=== PATIENT | female | born 2000 | race Caucasian/White ===

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

== ENCOUNTER 2023-01-19 16:18 | Inpatient (IN) | payer OTHER, SELFPAY ==
[2023-01-19] VITALS (7 sets, daily range): BP systolic 112–126; BP diastolic 67–88; PULSE 69–86; RESP 16–18; TEMP 36.3–37.4; O2SAT 98–100; BMI 24.9; BMI 25.1
--- NOTE | 2023-01-19 16:34 | CT_ITS ---
INDICATION: RLQ abd pain EXAMINATION: CT Abdomen And Pelvis W/ Contrast Injection TECHNIQUE: Helically acquired images were obtained of the abdomen and pelvis after IV contrast. A radiation dose optimization technique was used for this scan. IV Contrast dosage and agent: IV 100mL [id number]-370 Oral contrast: None. COMPARISON: None. FINDINGS: Visualized lung bases: Unremarkable Liver: Unremarkable Gallbladder: Unremarkable Spleen: Unremarkable Pancreas: Unremarkable Adrenal Glands: Unremarkable Kidneys: Unremarkable Vasculature: Unremarkable GI Tract: There is a twisting of the mesentery and the mid sigmoid colon in the left lower abdominal quadrant. The small and large bowel proximal to this is dilated. There is surrounding mesenteric fat stranding. The appendix is not visualized. Lymphadenopathy: None Peritoneum: No ascites. Bladder: Unremarkable Reproductive organs: Unremarkable Bones/Soft tissues: No suspicious osseous or soft tissue lesions CT/Abdomen/Pelvis W IV Cont ONLY IMPRESSION: Sigmoid volvulus. Electronically Signed: River Jensen MD at 17:42 EDT ,
[2023-01-19 16:42] LABS: Absolute Lymphocyte Count 2.25 X10^3/uL (0.83-4.51); Absolute Neutrophil Count 3.8 X10^3/uL (2.0-7.7); Basophil# 0.04 X10^3/uL; Basophil% 0.6 % (0-1); Eosinophil# 0.08 X10^3/uL; Eosinophils% 1.2 % (0-5); Hematocrit 40.7 % (37-47); Lymphocyte # 2.25 X10^3/ul (0.83-4.51); Mean Corp Hgb Conc 34.4 g/dL (32-36); Mean Corpuscular Hgb 29.9 pg (27.0-32.0); Mean Platelet Vol. 9.6 fl (6.2-12.0); Monocyte# 0.68 X10^3/uL; NRBC Flagged by Analyzer 0 % (0-5); Neutrophil # 3.75 X10^3/uL (2.7-7.7); Neutrophil % 55.1 % (47-70); Platelet Count 308 K/mm3 (150-450); RBC Distribution Width CV 11.3 % (11.6-14.6); RBC Distribution Width SD 35.7 fl (35.1-43.9); Red Blood Count 4.68 M/mm3 (4.2-5.4); White Blood Count 6.8 K/mm3 (4.4-11.0)
--- NOTE | 2023-01-19 16:44 | ED.VIS.GI ---
HPI HPI - GI History of Present Illness Chief Complaint: Abd Pain Informant: patient Narrative Narrative: Patient is a 22-year-old female with no significant past medical history presenting with abdominal pain. Patient states she felt fine yesterday. When she woke up today she had some pain in her lower abdomen and around her bellybutton. As a day progresses move more to her right lower quadrant. Its become more severe. She had she is on her menstrual cycle but this does not feel like menstrual cramps. She has had a decreased appetite today but still was able to eat lunch around 1:00. Denies any significant nausea vomiting or change or bowel movements. Denies any fever or chills. Denies a history of any abdominal surgeries. Never anything like this before. Notes that any bumps in the road when driving make the pain worse. Did try to take Midol little after 1 with no relief of her symptoms. No other complaints or concerns at this time. Denies any urinary symptoms. PFSH PFSH Home Medications multivitamin (Daily Multi-Vitamin tablet) 1 tab PO QAM 06/11/17 [History Last Taken Unknown] azithromycin 250 mg tablet See Rx Instructions PO .COMPLEX #6 tabs 08/26/18 [Rx Last Taken Unknown] Allergy/AdvReac Type Severity Reaction Status Date / Time No Known Allergies Allergy Verified 01/19/23 16:21 Social History Smoking Status: Never smoker alcohol intake: never ROS ROS ED Constitutional Constitutional ED: Denies chills or fever(s) Cardiovascular Cardiovascular: Denies chest pain Respiratory/Chest Respiratory/Chest: Denies cough Gastrointestinal Gastrointestinal: Reports abdominal pain; Denies constipation, diarrhea, nausea or vomiting Genitourinary Genitourinary ED: Denies dysuria or hematuria Musculoskeletal Musculoskeletal: Denies arthralgias or myalgias Integumentary Denies rash Neurologic Neurologic: Denies headache(s) Psychiatric Psychiatric: Denies anxiety EXAM Physical Exam Const Vital Signs: 01/19/23 16:19 Temperature 97.5 F L Temperature Source Temporal Pulse Rate 86 Respiratory Rate 18 Blood Pressure 125/88 H Blood Pressure Mean 100 Pulse Ox 98 Oxygen Delivery Method Room Air Positive well nourished and well developed General Appearance ED: well developed and NAD; Negative for pallor HEENT Reports moist mucous membranes Eyes PERRL and EOMs intact bilaterally Neck supple Resp normal respiratory effort and clear to auscultation bilaterally Cardio regular rate, regular rhythm and no murmurs GI Inspection: abdominal distention Auscultation: hypoactive bowel sounds Palpation: soft, tender RLQ, guarding and rebound tenderness present; Negative for rigid or mass Back/Spine no CVA tenderness Extremity full ROM Neuro moves all extremities Sensorium / Orientation: alert, oriented to person, oriented to place and oriented to time Psych mental status grossly normal and thought process normal Skin General Skin Exam: Negative for jaundice or pallor MDM MDM MDM Narrative Medical decision making narrative: Patient is evaluated for worsening right lower quadrant abdominal pain. She appears nontoxic. Does have a lot of pain in her right lower quadrant. Is given Toradol for pain (offered morphine but declined it at this time). Is given IV fluids as well. Physical exam is concerning for acute appendicitis and I did make surgery aware as is getting towards the end of the business day. Differential also includes ovarian torsion, colitis and small bowel obstruction but I feel like these are less likely. Patient's lab work is largely normal. Urine is negative. CT of the abdomen pelvis actually shows a sigmoid volvulus. Surgery spoke with radiology about this. Patient started on Zosyn. She will be taken for operative management. Tentative plan is to attempt sigmoid decompression/detorsion and then laparoscopic repair at a later date however this is unsuccessful patient will require an open laparotomy for sigmoidectomy. Patient continues to have adequate pain control in the ER. Patient and family agreeable with this plan of care. Lab Data Attestation: I reviewed the patient's lab results. Labs: Laboratory Results - last 24 hr 01/19/23 01/19/23 16:37 16:45 WBC 6.8 RBC 4.68 Hgb 14.0 Hct 40.7 MCV 87.0 MCH 29.9 MCHC 34.4 RDW Std Deviation 35.7 RDW Coeff of Leo 11.3 L Plt Count 308 MPV 9.6 Immature Gran % (Auto) 0.100 Neut % (Auto) 55.1 Lymph % (Auto) 33.0 [place] % (Auto) 10.0 Eos % (Auto) 1.2 Baso % (Auto) 0.6 Absolute Neuts (auto) 3.8 Absolute Lymphs (auto) 2.25 Nucleated RBC % 0 Sodium 139 Potassium 3.6 Chloride 110 H Carbon Dioxide 24.0 Anion Gap 5 BUN 7 Creatinine 0.70 Estim Creat Clear Calc 124.67 Est GFR (MDRD) Af Amer 136 Est GFR (MDRD) Non-Af 112 BUN/Creatinine Ratio 9.9 L Glucose 97 Calcium 8.8 Total Bilirubin 0.40 AST 14 L ALT 17 Alkaline Phosphatase 41 L Total Protein 7.2 Albumin 3.5 Globulin 3.7 Albumin/Globulin Ratio 0.9 Lipase 29 Urine Color Straw Urine Clarity Sl. Cloudy Urine pH 7.0 Ur Specific [place] 1.005 Urine Protein Negative Urine Glucose (UA) Normal Urine Ketones Negative Urine Occult Blood Negative Urine Nitrite Negative Urine Bilirubin Negative Urine Urobilinogen Normal Ur Leukocyte Esterase Negative Urine RBC 0 SEEN Urine WBC 0 SEEN Ur Squamous Epith Cells 0-5 SEEN Urine Bacteria 0 SEEN Urine Mucus 0 SEEN Urine Test Negative Radiography Diagnostic Testing: Clinical Impression(s) from Imaging Studies Abdomen/Pelvis CT 01/19/23 16:34 IMPRESSION: Sigmoid volvulus. Electronically Signed: River Jensen MD at 17:42 EDT , Discharge Plan Dx/Rx/DC Orders Clinical Impression: Volvulus of sigmoid colon Disposition Disposition: Acute Care Hospital [facility] [place] Discharge Date/Time: 01/19/23 18:23
[2023-01-19 16:52] LABS: Bacteria 0 SEEN /hpf (None Seen); Mucous, Urine 0 SEEN /hpf (<or=2+); Red Blood Cells-Urine 0 SEEN /hpf (0-5); White Blood Cells 0 SEEN /hpf (0-5)
[2023-01-19] MEDS: 0.9% Normal Saline (1000mL) 1,000 ML 1000 ML IV (16:53)
[2023-01-19] MEDS: Ketorolac 15 MG/ML Vial IV (16:54)
[2023-01-19 16:57] LABS: Color, Urine Straw (Yellow); Glucose, Dipstick Normal (Normal); Ketone-Dipstick Negative (Negative); Leukocyte Esterase-Dipstick Negative /ul (Negative); Nitrite-Dipstick Negative (Negative); Occult Blood-Urine Negative /ul (Negative); Protein-Dipstick Negative (Negative); Specific Gravity, Urine 1.005 (1.002-1.030); Urine Bilirubin Dipstick Negative (Negative); Urine Clarity Sl. Cloudy (Clear); Urine Urobilinogen Normal (Normal)
[2023-01-19 16:59] LABS: Internal QC Validated? YES +Cl - CLEAR BKGD; Pregnancy, Urine Negative Negative; Record Kit Lot#,Urine Preg HCG0000667200
[2023-01-19 17:03] LABS: ALB/GLOB Ratio 0.9 RATIO (0.9-2.4); AST(SGOT) 14 U/L (15-37); Alanine Aminotransfer ALT/SGPT 17 U/L (13-56); Albumin, Serum 3.5 g/dL (3.2-5.0); Alkaline Phosphatase 41 U/L (45-117); Anion Gap 5 (5-15); BUN 7 mg/dL (7-18); BUN/Creat Ratio 9.9 RATIO (10-20); Calcium,Total 8.8 mg/dL (8.5-10.1); Chloride 110 mmol/L (98-107); EST Glomerular Filtration Rate 112 mL/min (>60); Est Glom Filt Rate - Afr Amer 136 mL/min (>60); Estimated Creatinine Clearance 124.67 ml/min; Globulin 3.7 g/dL (2.2-4.2); Glucose 97 mg/dL (74-106); Lipase 29 U/L (13-75); Potassium 3.6 mmol/L (3.5-5.1); Protein, Total 7.2 g/dL (6.4-8.2); Sodium Level 139 mmol/L (136-145)
[2023-01-19 17:09] LABS: Squamous Epithelial Cells - UA 0-5 SEEN /hpf (5-10)
--- NOTE | 2023-01-19 18:06 | HP.PCM.SX_ITS ---
HPI - General General Date of Admission: 01/19/23 HPI Narrative NEELAM MIKE, is a 22 F who presents with abdominal pain in the right lower quadrant. She says this pain started today. She says she has passed gas and had a bowel movement today. She says this does not feel like her normal menstrual pain. She denies nausea or vomiting. [facility] Home Medications multivitamin (Daily Multi-Vitamin tablet) 1 tab PO QAM 06/11/17 [History Last Taken Unknown] azithromycin 250 mg tablet See Rx Instructions PO .COMPLEX #6 tabs 08/26/18 [Rx Last Taken Unknown] Allergy/AdvReac Type Severity Reaction Status Date / Time No Known Allergies Allergy Verified 01/19/23 16:21 Social History Smoking Status: Never smoker alcohol intake: never ROS Constitutional Constitutional: Denies anorexia, chills, fatigue or fever(s) Eyes Eyes: Denies blurry vision ENT HEENT: Denies abnormal hearing Cardiovascular Cardiovascular: Denies chest pain Respiratory/Chest Respiratory/Chest: Denies cough or dyspnea Gastrointestinal Gastrointestinal: Reports abdominal pain; Denies constipation, diarrhea, nausea or vomiting Genitourinary Genitourinary: Denies difficulty urinating Musculoskeletal Musculoskeletal: Denies abnormal gait Integumentary Integumentary: Denies jaundice Neurologic Neurologic: Denies abnormal gait Psychiatric Psychiatric: Denies anxiety Endocrine Endocrinology: Denies flushing Vital Signs Vital Signs Vital Signs: 01/19/23 16:19 01/19/23 17:40 Temperature 97.5 F L 97.4 F L Temperature Source Temporal Temporal Pulse Rate 86 74 Respiratory Rate 18 16 Blood Pressure 125/88 H 126/84 H Blood Pressure Mean 100 98 Pulse Ox 98 99 Oxygen Delivery Method Room Air Room Air Weight Weight: 159 lb Body Mass Index (BMI) 24.9 Physical Exam Const oriented x3 and no apparent distress Resp normal respiratory effort Cardio regular rate and regular rhythm GI soft to palpation and non-tender Inspection: abdominal distention Results Lab / Micro Data 01/19/23 16:37 01/19/23 16:37 Labs: Laboratory Results - last 24 hr 01/19/23 16:37: WBC 6.8, RBC 4.68, Hgb 14.0, Hct 40.7, MCV 87.0, MCH 29.9, MCHC 34.4, RDW Std Deviation 35.7, RDW Coeff of Leo 11.3 L, Plt Count 308, MPV 9.6, Immature Gran % (Auto) 0.100, Neut % (Auto) 55.1, Lymph % (Auto) 33.0, Gray % (A uto) 10.0, Eos % (Auto) 1.2, Baso % (Auto) 0.6, Absolute Neuts (auto) 3.8, Absolute Lymphs (auto) 2.25, Nucleated RBC % 0, Sodium 139, Potassium 3.6, Chloride 110 H, Carbon Dioxide 24.0, Anion Gap 5, BUN 7, Creatinine 0.70, Estim Creat Clear Calc 124.67, Est GFR (MDRD) Af Amer 136, Est GFR (MDRD) Non-Af 112, BUN/Creatinine Ratio 9.9 L, Glucose 97, Calcium 8.8, Total Bilirubin 0.40, AST 14 L, ALT 17, Alkaline Phosphatase 41 L, Total Protein 7.2, Albumin 3.5, Globulin 3.7, Albumin/Globulin Ratio 0.9, Lipase 29 01/19/23 16:45: Urine Color Straw, Urine Clarity Sl. Cloudy, Urine pH 7.0, Ur Specific [place] 1.005, Urine Protein Negative, Urine Glucose (UA) Normal, Urine Ketones Negative, Urine Occult Blood Negative, Urine Nitrite Negative, Urine Bilirubin Negative, Urine Urobilinogen Normal, Ur Leukocyte Esterase Negative, Urine RBC 0 SEEN, Urine WBC 0 SEEN, Ur Squamous Epith Cells 0-5 SEEN, Urine Bacteria 0 SEEN, Urine Mucus 0 SEEN, Urine Test Negative Radiology Impression Abdomen/Pelvis CT 01/19/23 16:34 IMPRESSION: Sigmoid volvulus. Electronically Signed: River Jensen MD at 17:42 EDT , Assessment & Plan Assessment/Plan (1) Volvulus of sigmoid colon: PLAN: Patient came in with abdominal pain a CT revealed sigmoid volvulus. The patient is nontender and all of her pain is in the right lower quadrant. She does not have any guarding or fever. I discussed her diagnosis with her. I would like to attempt flexible sigmoidoscopy first. There are no signs of peritonitis or ischemia. Her white count is normal. If decompressive sigmoidoscopy is not able to be done then I will take her for exploratory laparotomy and sigmoid resection. If I am able to decompress her with sigmoidoscopy I will admit her to the floor and slowly start a diet and decide when to operate on her this week after bowel prep and I would be able to perform an invasive surgery. I discussed this plan with the patient and her father and they are both in agreement. I discussed the risks of surgery and flexible sigmoidoscopy including but not limited to bleeding, infection, perforation of the bowel, injury to other organs. Patient understands the risks and is willing to proceed. The plan will be to take her under MAC anesthesia for flexible sigmoidoscopy and if that is unsuccessful she will go to PACU to recover and then go to surgery under general anesthesia. Patient is given antibiotics in the emergency room. Vipul Bauer MD Pager: [facility] [address] [place] [address] [address] [place] [address] Office:
[2023-01-19] MEDS: Piperacil/Tazobactam 3.375 GM in 0.9% Normal Saline (50mL MB+) 50 ML IV (18:11)
--- NOTE | 2023-01-19 19:13 | OP.FLEXSIG_ITS ---
Patient Name: Zunilda Butts Procedure Date: 01/19/2023 6:06 PM Date of : 2000 Age: 22 Procedure: Flexible Sigmoidoscopy Indications: Volvulus Providers: Vipul Bauer MD Medicines: Monitored Anesthesia Care Patient Profile: Last Colonoscopy: none. The patient's first colonoscopy is today. Complications: No immediate complications. Estimated blood loss: Minimal. Procedure: Pre-Anesthesia Assessment: - Prior to the procedure, a History and Physical was performed, and patient medications and allergies were reviewed. The patient's tolerance of previous anesthesia was also reviewed. The risks and benefits of the procedure and the sedation options and risks were discussed with the patient. All questions were answered, and informed consent was obtained. Prior Anticoagulants: The patient has taken no anticoagulant or antiplatelet agents. After reviewing the risks and benefits, the patient was deemed in satisfactory condition to undergo the procedure. After obtaining informed consent, the endoscope was passed under direct vision. Throughout the procedure, the patient's blood pressure, pulse, and oxygen saturations were monitored continuously. The Colonoscope was introduced through the anus and advanced to the left transverse colon. The flexible sigmoidoscopy was accomplished without difficulty. The patient tolerated the procedure well. Scope In: 6:35:58 PM Scope Out: 7:06:05 PM Total Procedure Duration Time 0 hours 30 minutes 7 seconds Findings: A volvulus with viable appearing mucosa was found in the sigmoid colon. Decompression of the volvulus was attempted and was successful, with complete decompression achieved. Following the maneuver, a tube was placed to maintain the decompression. Estimated blood loss was minimal. Impression: - Volvulus. Successful complete decompression achieved. - No specimens collected. Recommendation: - Return patient to hospital cool for ongoing care. Procedure Code(s): --- Professional --- 05839, Sigmoidoscopy, flexible; with decompression (for pathologic distention) (eg, volvulus, megacolon), including placement of decompression tube, when performed Diagnosis Code(s): --- Professional --- K56.2, Volvulus CPT copyright 2021 [employer]. All rights reserved. The codes documented in this report are preliminary and upon supervisor braiding review may be revised to meet current compliance requirements. Vipul Bauer MD 01/19/2023 7:12:36 PM This report has been signed electronically. Number of Addenda: 0 Note Initiated On: 01/19/2023 6:06 PM
--- NOTE | 2023-01-19 19:13 | OP.CCLET_ITS ---
01/19/2023 Christopher Anthony [address] [place] [address] Re : Flexible Sigmoidoscopy procedure for Zunilda Butts Dear Dr. Anthony This procedure was performed on Thursday, January 19, 2023. My impressions and recommendations are as follows: Impressions : - Volvulus. Successful complete decompression achieved. - No specimens collected. Recommendations : - Return patient to hospital cool for ongoing care. My findings are described in the full procedure note, which is enclosed. If I can be of further assistance, please feel free to contact me at Doctor phone number(s): , Work: . Sincerely, Vipul Bauer MD 01/19/2023 7:12:36 PM This report has been signed electronically.
--- NOTE | 2023-01-19 19:15 | PN_ITS ---
Progress Note I performed a flexible sigmoidoscopy and I was able to decompress the sigmoid colon and placed a rectal tube. The mucosa appeared viable and healthy. Rectal tube was placed and taped to the buttock. KUB will be obtained. Patient will be admitted and rectal tube would stay in place until tomorrow. Vipul Bauer MD Pager: [facility] [address] [place] [address] [address] [place] [address] Office:
--- NOTE | 2023-01-19 19:20 | RAD_ITS ---
INDICATION: placement of rectal tube EXAMINATION/TECHNIQUE: X-RAY - XR Abdomen 1 View COMPARISON: None FINDINGS: BOWEL GAS PATTERN: Interval decrease in air-filled distention of small and large bowel. Status post rectal tube placement. FREE AIR: Not assessed on a single supine view. ORGANOMEGALY: Not seen. CALCIFICATIONS: No abnormal calcifications observed. LOWER CHEST: No acute pathology. BONES AND SOFT TISSUES: No acute pathology. RAD/Abdomen Single View (Portable) IMPRESSION: Interval rectal tube placement with associated improvement in bowel obstruction from known sigmoid volvulus. Electronically Signed: River Jensen MD at 20:06 EDT ,
[2023-01-19] MEDS: 0.9% Normal Saline (1000mL) 1,000 ML 100 ML IV (20:11)
[2023-01-20 02:35] VITALS: BP 113/57; PULSE 66; RESP 16; TEMP 36.6; O2SAT 98
[2023-01-20 05:47] LABS: Absolute Lymphocyte Count 2.48 X10^3/uL (0.83-4.51); Absolute Neutrophil Count 1.9 X10^3/uL (2.0-7.7); Basophil# 0.03 X10^3/uL; Basophil% 0.6 % (0-1); Eosinophil# 0.09 X10^3/uL; Eosinophils% 1.8 % (0-5); Hematocrit 34.3 % (37-47); Hemoglobin 11.4 g/dL (12.0-15.0); Lymphocyte # 2.48 X10^3/ul (0.83-4.51); Lymphocyte % 49.5 % (19-41); Mean Corp Hgb Conc 33.2 g/dL (32-36); Mean Corpuscular Hgb 29.2 pg (27.0-32.0); Mean Corpuscular Volume 87.9 fL (81-99); Mean Platelet Vol. 10.5 fl (6.2-12.0); Monocyte# 0.54 X10^3/uL; Monocyte% 10.8 % (0-10); NRBC Flagged by Analyzer 0 % (0-5); Neutrophil # 1.85 X10^3/uL (2.7-7.7); Neutrophil % 36.9 % (47-70); Platelet Count 252 K/mm3 (150-450); RBC Distribution Width CV 11.3 % (11.6-14.6); RBC Distribution Width SD 35.7 fl (35.1-43.9)
[2023-01-20] MEDS: 0.9% Normal Saline (1000mL) 1,000 ML 100 ML IV ×2 (05:53→15:59)
[2023-01-20 06:28] LABS: Anion Gap 4 (5-15); BUN 6 mg/dL (7-18); BUN/Creat Ratio 8.8 RATIO (10-20); Calcium,Total 7.7 mg/dL (8.5-10.1); Chloride 115 mmol/L (98-107); Creatinine, Serum 0.68 mg/dL (0.55-1.02); EST Glomerular Filtration Rate 117 mL/min (>60); Est Glom Filt Rate - Afr Amer 141 mL/min (>60); Estimated Creatinine Clearance 128.33 ml/min; Glucose 83 mg/dL (74-106); Potassium 3.7 mmol/L (3.5-5.1); Sodium Level 141 mmol/L (136-145)
[2023-01-20 08:31] VITALS: BP 107/60; PULSE 58; RESP 16; TEMP 36.9; O2SAT 99
--- NOTE | 2023-01-20 09:25 | PCM.PN.SRG ---
Subjective Subjective Patient is doing well with no pain Objective Data Objective Data Vital Signs: Vital Signs Temp Pulse Resp BP Pulse Ox O2 Del Method 98.4 F 58 L 16 107/60 99 Room Air 01/20/23 08:31 01/20/23 08:31 01/20/23 08:31 01/20/23 08:31 01/20/23 08:31 01/20/23 08:31 Oxygen Delivery Method Room Air Weight: 160 lb 4.8 oz Body Mass Index (BMI) 25.1 Intake & Output: Intake and Output for Last 24 Hours 01/18/23 01/19/23 01/20/23 23:59 23:59 23:59 Intake Total 1050 / 1050 970 / 970 Balance 1050 / 1050 970 / 970 Lab / Micro Data 01/20/23 04:34 01/20/23 04:34 Labs: Laboratory Results - last 24 hr 01/19/23 16:37: WBC 6.8, RBC 4.68, Hgb 14.0, Hct 40.7, MCV 87.0, MCH 29.9, MCHC 34.4, RDW Std Deviation 35.7, RDW Coeff of Leo 11.3 L, Plt Count 308, MPV 9.6, Immature Gran % (Auto) 0.100, Neut % (Auto) 55.1, Lymph % (Auto) 33.0, [place] % (Auto) 10.0, Eos % (Auto) 1.2, Baso % (Auto) 0.6, Absolute Neuts (auto) 3.8, Absolute Lymphs (auto) 2.25, Nucleated RBC % 0, Sodium 139, Potassium 3.6, Chloride 110 H, Carbon Dioxide 24.0, Anion Gap 5, BUN 7, Creatinine 0.70, Estim Creat Clear Calc 124.67, Est GFR (MDRD) Af Amer 136, Est GFR (MDRD) Non-Af 112, BUN/Creatinine Ratio 9.9 L, Glucose 97, Calcium 8.8, Total Bilirubin 0.40, AST 14 L, ALT 17, Alkaline Phosphatase 41 L, Total Protein 7.2, Albumin 3.5, Globulin 3.7, Albumin/Globulin Ratio 0.9, Lipase 29 01/19/23 16:45: Urine Color Straw, Urine Clarity Sl. Cloudy, Urine pH 7.0, Ur Specific [place] 1.005, Urine Protein Negative, Urine Glucose (UA) Normal, Urine Ketones Negative, Urine Occult Blood Negative, Urine Nitrite Negative, Urine Bilirubin Negative, Urine Urobilinogen Normal, Ur Leukocyte Esterase Negative, Urine RBC 0 SEEN, Urine WBC 0 SEEN, Ur Squamous Epith Cells 0-5 SEEN, Urine Bacteria 0 SEEN, Urine Mucus 0 SEEN, Urine Test Negative 01/20/23 04:34: WBC 5.0, RBC 3.90 L, Hgb 11.4 L, Hct 34.3 L, MCV 87.9, MCH 29.2, MCHC 33.2, RDW Std Deviation 35.7, RDW Coeff of Leo 11.3 L, Plt Count 252, MPV 10.5, Immature Gran % (Auto) 0.400, Neut % (Auto) 36.9 L, Lymph % (Auto) 49.5 H, [place] % (Auto) 10.8 H, Eos % (Auto) 1.8, Baso % (Auto) 0.6, Absolute Neuts (auto) 1.9 L, Absolute Lymphs (auto) 2.48, Nucleated RBC % 0, Sodium 141, Potassium 3.7, Chloride 115 H, Carbon Dioxide 22.0, Anion Gap 4 L, BUN 6 L, Creatinine 0.68, Estim Creat Clear Calc 128.33, Est GFR (MDRD) Af Amer 141, Est GFR (MDRD) Non-Af 117, BUN/Creatinine Ratio 8.8 L, Glucose 83, Calcium 7.7 L Radiography Diagnostic Testing: Radiology Impression Abdomen/Pelvis CT 01/19/23 16:34 IMPRESSION: Sigmoid volvulus. Electronically Signed: River Jensen MD at 17:42 EDT , KUB X-Ray 01/19/23 19:20 IMPRESSION: Interval rectal tube placement with associated improvement in bowel obstruction from known sigmoid volvulus. Electronically Signed: River Jensen MD at 20:06 EDT , Physical Exam Const oriented x3 and no apparent distress Resp normal respiratory effort GI soft to palpation and non-tender Assessment & Plan Assessment/Plan (1) Volvulus of sigmoid colon: PLAN: Patient reports she is feeling well. She says the rectal tube is uncomfortable. I will remove the rectal tube and start clear liquids today. I am waiting for tomorrow to see when I can schedule her for a sigmoid colectomy. If her symptoms worsen with removal of the rectal tube and starting of a diet I am may take her today for sigmoid colectomy but the hope would be that she tolerates clears and would be able to do a bowel prep and complete the sigmoid colectomy minimally invasively. Vipul Bauer MD Pager: [facility] [address] [place] [address], [address] [place] [address] Office:
--- NOTE | 2023-01-20 12:57 | NURSING ---
1100-rectal tube removed per orders of Dr. Bauer.
[2023-01-20 14:31] VITALS: BP 103/55; PULSE 61; RESP 16; TEMP 37; O2SAT 99
--- NOTE | 2023-01-20 17:18 | NURSING ---
VS taken by Maria L ARAUJO at 1431 and entered by Tiffany ARAUJO at 1711
[2023-01-20 21:21] VITALS: BP 113/62; PULSE 64; RESP 16; TEMP 36.6; O2SAT 100
[2023-01-21] MEDS: 0.9% Normal Saline (1000mL) 1,000 ML 100 ML IV ×3 (01:44→21:09)
[2023-01-21 02:12] VITALS: BP 105/63; PULSE 82; RESP 16; TEMP 36.6; O2SAT 99
--- NOTE | 2023-01-21 08:17 | PCM.PN.SRG ---
Subjective Subjective Patient reports she is passing some flatus this morning. She is having no abdominal pain. She tolerated clears yesterday. Objective Data Objective Data Vital Signs: Vital Signs Temp Pulse Resp BP Pulse Ox O2 Del Method 97.8 F 82 16 105/63 99 Room Air 01/21/23 02:12 01/21/23 02:12 01/21/23 02:12 01/21/23 02:12 01/21/23 02:12 01/21/23 02:12 Oxygen Delivery Method Room Air Weight: 160 lb 4.8 oz Body Mass Index (BMI) 25.1 Intake & Output: Intake and Output for Last 24 Hours 01/19/23 01/20/23 01/21/23 23:59 23:59 23:59 Intake Total 1050 / 1050 2270 / 2270 975 / 975 Balance 1050 / 1050 2270 / 2270 975 / 975 Lab / Micro Data 01/20/23 04:34 01/20/23 04:34 Physical Exam Const oriented x3 and no apparent distress Resp normal respiratory effort GI soft to palpation and non-tender Assessment & Plan Assessment/Plan (1) Volvulus of sigmoid colon: PLAN: The patient had sigmoid volvulus and underwent endoscopic decompression with placement of rectal tube. Rectal tube was removed yesterday due to discomfort. Patient states she is passing gas and tolerating clears. I have her on the surgery schedule for for laparoscopic sigmoid colectomy. I will see how she tolerates clears today before deciding if she will stay till or go home and come back. Vipul Bauer MD Pager: [facility] [address] [place] [address] [place] [address] Office:
[2023-01-21 08:18] VITALS: BP 104/58; PULSE 60; RESP 18; TEMP 36.3; O2SAT 99
--- NOTE | 2023-01-21 10:02 | NURSING ---
education/reinforcement of precautions/risks/ramifications with missing control/antibiotic meds for unwanted prevention. pt verbalizes understanding.
[2023-01-21 14:20] VITALS: BP 104/61; PULSE 60; RESP 18; TEMP 36.6; O2SAT 100
--- NOTE | 2023-01-21 14:55 | CASEMGMT ---
RN?CM?WHEEL BORER?CM?to room to meet with patient for initial transition planning/care coordination?assessment.?RN?CM?introduced self and role at [facility].? Pt voices understanding and consents to?assessment?at this time.? Pt resting in bed in no distress at this time.? Pt is A/O at this time and answers all questions appropriately.?? Care providers, pharmacy, and demographics verified/updated at this time. PCP: Dr Anthony Specialists: none Preferred Pharmacy: [facility] Retail pharmacy at discharge. Otherwise, [facility] Insurance: Commercial insurance Prescription Benefit:?yes Living Will/HPOA:?Pt does not currently have LW/HCPOA and declines info at this time. LNOK: Mother, Najma. Father. Living Arrangements: Lives w/her parents, brother, and sister, but she has been @ college. Independent. Transportation:?Pt states drives self and states no transportation concerns at this time.?Parents will take her home @ discharge. DME: ? Denies using any DME and denies needs.? HHC/SNF: No hx of either. Pt wishes to return home and states has no concerns with going home at time of discharge.? CM?to follow for any discharge planning/needs.? Pt voices no concerns/needs at this time.? Advised pt to ask for?CM?if any questions/concerns/needs arise.? Voices understanding. PLAN:??Home Karina ENCINASN?RN?CM
[2023-01-21 21:02] VITALS: BP 105/62; PULSE 52; RESP 16; TEMP 36.4; O2SAT 98
[2023-01-22 03:39] VITALS: BP 101/58; PULSE 94; RESP 18; TEMP 36.4; O2SAT 98
[2023-01-22] MEDS: 0.9% Normal Saline (1000mL) 1,000 ML 100 ML IV (06:29)
[2023-01-22 08:28] VITALS: BP 106/58; PULSE 67; RESP 16; TEMP 36.4; O2SAT 99
--- NOTE | 2023-01-22 09:07 | PN.SURG_ITS ---
Subjective Subjective No issues today. Patient is comfortable and passing flatus. She tolerated full liquids. She had a bowel movement yesterday. Objective Data Objective Data Vital Signs: Vital Signs Temp Pulse Resp BP Pulse Ox O2 Del Method 97.5 F L 67 16 106/58 L 99 Room Air 01/22/23 08:28 01/22/23 08:28 01/22/23 08:28 01/22/23 08:28 01/22/23 08:28 01/22/23 08:28 Oxygen Delivery Method Room Air Weight: 160 lb 4.8 oz Body Mass Index (BMI) 25.1 Intake & Output: Intake and Output for Last 24 Hours 01/20/23 01/21/23 01/22/23 23:59 23:59 23:59 Intake Total 2270 / 2270 2916.66 / 2916.66 1170.00 / 1170.00 Balance 2270 / 2270 2916.66 / 2916.66 1170.00 / 1170.00 Lab / Micro Data 01/20/23 04:34 01/20/23 04:34 Assessment & Plan Assessment/Plan (1) Volvulus of sigmoid colon: PLAN: Patient is tolerating full liquids. I will start a clear liquid diet and bowel prep tomorrow for surgery on . Vipul Bauer MD Pager: [facility] [address] [place] [address], [address] [place] [address] Office:
[2023-01-22] MEDS: FLUoxetine 10 MG Capsule PO (11:27)
[2023-01-22 15:06] VITALS: BP 105/64; PULSE 82; RESP 16; TEMP 36.6; O2SAT 99
[2023-01-22 21:06] VITALS: BP 128/107; PULSE 89; RESP 16; TEMP 36.4; O2SAT 98
[2023-01-23 03:12] VITALS: BP 103/61; PULSE 71; RESP 16; TEMP 36.6; O2SAT 99
[2023-01-23] MEDS: FLUoxetine 10 MG Capsule PO (10:03)
[2023-01-23 10:07] VITALS: BP 100/55; PULSE 70; RESP 17; TEMP 36.6; O2SAT 98
--- NOTE | 2023-01-23 10:37 | PN.SURG_ITS ---
Subjective Subjective Patient evaluated resting comfortably in bed. She denies any concerns or complaints this morning. She tolerated her full liquid diet. Objective Data Objective Data Vital Signs: Vital Signs Temp Pulse Resp BP Pulse Ox O2 Del Method 97.8 F 70 17 100/55 L 98 Room Air 01/23/23 10:07 01/23/23 10:07 01/23/23 10:07 01/23/23 10:07 01/23/23 10:07 01/23/23 10:07 Oxygen Delivery Method Room Air Weight: 160 lb 4.417 oz Body Mass Index (BMI) 25.1 Intake & Output: Intake and Output for Last 24 Hours 01/21/23 01/22/23 01/23/23 23:59 23:59 23:59 Intake Total 2916.66 / 2916.66 1670.00 / 1670.00 500 / 500 Balance 2916.66 / 2916.66 1670.00 / 1670.00 500 / 500 Lab / Micro Data 01/20/23 04:34 01/20/23 04:34 Physical Exam GI normal to inspection, nondistended, normoactive bowel sounds Assessment & Plan Assessment/Plan (1) Volvulus of sigmoid colon: PLAN: Plan Start clear liquids this morning Plan for ERAS bowel prep today Laparoscopic sigmoid colectomy planned for tomorrow with Dr. Bauer Charges/Coding Visit Charges Inpatient E&M: 05053 [facility] L1
[2023-01-23] MEDS: Bisacodyl 5 MG Tablet PO ×2 (12:41→16:06)
[2023-01-23] MEDS: metroNIDAZOLE 500 MG Tablet 1000 MG PO ×3 (13:12→22:19)
[2023-01-23 14:22] VITALS: BP 96/63; PULSE 78; RESP 17; TEMP 36.3; O2SAT 100
[2023-01-23] MEDS: 0.9% Saline Lock 10 ML Syringe IV (17:07)
[2023-01-23] MEDS: Ondansetron 4 MG/2 ML Vial IV (17:07)
[2023-01-23] MEDS: Polyethylene Glycol 3350 BOWEL PREP 1 BOTTLE PO (17:35)
[2023-01-23 20:23] VITALS: BP 112/83; PULSE 93; RESP 16; TEMP 36.2; O2SAT 100
[2023-01-24] VITALS (20 sets, daily range): BP systolic 94–126; BP diastolic 54–92; PULSE 69–97; RESP 16–19; TEMP 36.6–37.6; O2SAT 98–100; BMI 25.1
--- NOTE | 2023-01-24 | COL_PTH ---
PATIENT: NEELAM MIKE LOC: MS3 U#:[id number] AGE/SX: 22/F ROOM: TX314 RE01/19/[address]: Dr. Vipul Bauer MD : 2000 BED: 1 DIS: 01/27/2023 SPEC #: [id number] RECD: 01/24/23 13:39 STATUS: MONY TURNER #: [id number] ANTWON: 01/24/23 00:[address]: Vipul Bauer DEPT: SURGICAL PATHOLOGY RECD BY: Alice Harmon ENTERED: 01/25/23 07:10 SP TYPE: COLON OTHR DR: Dr. Christopher Anthony, DO Tissues: A - Colon, NOS B - Colon Donuts C - Colon Donuts Procedures: Surgery Specimen Level III Surgery Specimen Level V HEADER OPERATION: ERAS, laparoscopic sigmoid colectomy PRE-OP DIAGNOSIS: Volvulus of sigmoid colon TISSUE SUBMITTED: A - Sigmoid colon, suzanne dave distal margin, B - Sigmoid donut, C - Rectal donut MICROSCOPIC DIAGNOSIS A. Sigmoid colon, colectomy: Dilated segment of colon, clinically volvulus. A small hyperplastic polyp at proximal margin. Detached segment of colon, no pathologic diagnosis. Four benign pericolonic lymph nodes. B. Sigmoid colonic donut: No pathologic diagnosis. C. Rectal colonic donut: No pathologic diagnosis. CYNTHIA:sherri 01/29/2023 MICROSCOPIC DESCRIPTION Slides are reviewed. GROSS DESCRIPTION A - Received in fixative is one container labeled with the patient's name and designated sigmoid colon, suzanne dave distal margin. The specimen consists of a segment of colon with attached pericolonic adipose tissue measuring 27.0 cm in length. One resection margin is opened and the second resection margin is stapled identifying distal margin. Colon measures 4.0 to 6.5 cm in diameter. No mucosal lesion is identified. Sections will be submitted after fixation. / CYNTHIA:sherri 01/25/2023 Also present in the container is a detached segment of colon with multiple suzanne measuring 2.5 cm in length and 5.5 cm in diameter. Sections of pericolonic adipose tissue do not reveal any obviously enlarged lymph node. Sales Ambassador sections are submitted in six cassettes as follows: 1-5 - larger segment of colon (1 - proximal resection margin, 2 - distal resection margin, 3 & 4 - product support representative sections of colon, 5 - pericolonic adipose tissue), 6 - smaller segment of colon. / SJ:sherri 01/28/2023 B - Received in fixative is one container labeled with the patient's name and designated sigmoid donut. The specimen consists of a donut-shaped piece of colonic tissue measuring 1.5 x 1.2 x 0.5 cm. The specimen serially sectioned and submitted entirely in one cassette. / : 01/25/2023 C - Received in fixative is one container labeled with the patient's name and designated rectal donut. The specimen consists of a donut-shaped piece of colonic tissue measuring 3.5 x 2.0 x 1.0 cm. Multiple suzanne are noted. Sales Ambassador sections are submitted in one cassette. / : 01/25/2023 TC:5 CPT: 62493, 84628 x2
[2023-01-24] MEDS: Ondansetron 4 MG/2 ML Vial IV (00:02)
--- NOTE | 2023-01-24 07:42 | PCM.PN.SRG ---
Subjective Subjective Patient had no issues and tolerated prep overnight. Objective Data Objective Data Vital Signs: Vital Signs Temp Pulse Resp BP Pulse Ox O2 Del Method 97.8 F 92 16 107/69 99 Room Air 01/24/23 03:06 01/24/23 03:06 01/24/23 03:06 01/24/23 03:06 01/24/23 03:06 01/24/23 03:06 Oxygen Delivery Method Room Air Weight: 160 lb 4.417 oz Body Mass Index (BMI) 25.1 Intake & Output: Intake and Output for Last 24 Hours 01/22/23 01/23/23 01/24/23 23:59 23:59 23:59 Intake Total 1670.00 / 1670.00 500 / 500 3000 / 3000 Balance 1670.00 / 1670.00 500 / 500 3000 / 3000 Lab / Micro Data 01/20/23 04:34 01/20/23 04:34 Physical Exam Const oriented x3 and no apparent distress Resp normal respiratory effort GI soft to palpation and non-tender Assessment & Plan Assessment/Plan (1) Volvulus of sigmoid colon: PLAN: The patient tolerated bowel prep. I plan for laparoscopic sigmoid colectomy today. I discussed this with her in detail again. I discussed the risks of bleeding, infection, injury other organs such as the bowel, bladder or ureters. I also discussed postoperative care. Vipul Bauer MD Pager: [facility] [address] [place] [address], [address] [place] [address] Office:
[2023-01-24] MEDS: Cefotetan 2 GM in 0.9% Normal Saline (100mL MB+) 100 ML IV (10:17)
[2023-01-24] MEDS: BUPIVACAINE LIPOSOME/PF 20 ML VIAL OPERA.SITE (12:03)
[2023-01-24] MEDS: Lactated Ringers 1,000 ML 40 ML IV (12:57)
--- NOTE | 2023-01-24 13:10 | PCM.OPRPT ---
Report of Operation Date of Procedure: 01/24/23 Pre-Operative Diagnosis: History of sigmoid volvulus Post-Operative Diagnosis: Same Surgery/Procedure Performed:: Laparoscopic sigmoid colectomy Type of Anesthesia: General/Regional Specimen's removed: Sigmoid colon Estimated Blood Loss (mL): 10 Description of Procedure: Patient brought back to the operating and general anesthesia was induced. A Holman catheter was placed and the rectal vault was irrigated with a saline and Betadine solution. Next the abdomen was prepped and draped in a sterile fashion. The perineal area was prepped and draped as well. A small midline incision was made superior to the umbilicus and deep to the fascia which was elevated and incised. A port was placed into the abdomen and it was inflated to 15 mmHg. Under laparoscopic visualization a tap block was performed bilaterally. Under direct visualization a 12 mm port was placed in the right lower quadrant and a 5 mm port was placed in the right lateral abdominal sidewall. Patient was placed in Trendelenburg position. The sigmoid colon was examined. An area proximally and distally were marked and then the mesentery was taken down using Enseal. The distal sigmoid at the rectal junction was divided using [employer] MELANIA stapler. Next a small Pfannenstiel incision was made at the bikini line. It was deepened to the fascia which was incised horizontally. The midline was then opened vertically. A wound protector was placed. The distal colon was delivered through the incision. Next the proximal sigmoid colon was divided using electrocautery. It was sent for pathology with the staple line marking the distal end. The descending colon was very dilated. A 33 EEA stapler was selected and the anvil and point were placed into the sigmoid colon and through the anterior wall of the colon. The descending colon was then stapled across using an [employer] stapler to close the distal end. It was too dilated to perform a pursestring around the anvil. Next the colon was replaced into the abdomen. The pneumoperitoneum was reestablished and serial dilators were used per rectum and then the EEA stapler was placed through the rectum and to the staple line. The point was extended through the staple line. The anvil was placed over the point and it was closed and fired. The stapler was removed. Care was taken to make sure that the fallopian tubes and ovaries were spared and far away from the anastomosis. Next a leak test was performed which was normal and there were no bubbles. The abdomen was suctioned dry and the wound protector was removed. All the ports were removed and the abdomen was allowed to desufflate. Staff all changed gown and gloves. Next the midline and right lower quadrant fascia was closed with interrupted 0 Vicryl sutures. The peritoneum of the Pfannenstiel incision was reapproximated with a running 3-0 Vicryl suture. The anterior fascia was closed in a running fashion with #1 PDS suture. The subcutaneous tissue was irrigated and suctioned dry. All the incisions were injected with local anesthetic and closed with interrupted 4-0 Monocryl sutures. Steri-Strips and bandages were applied. Patient was taken to PACU in stable condition with a Holman in place. Patient tolerated the procedure well. Admit VTE Documentation VTE Mechan Device Prophylaxis: SCD's
[2023-01-24] MEDS: Ketorolac 15 MG/ML Vial IV ×2 (15:54→21:59)
[2023-01-24] MEDS: Acetaminophen 500 MG Tablet 1000 MG PO ×2 (18:42→23:30)
[2023-01-25 04:08] VITALS: BP 93/53; PULSE 81; RESP 17; TEMP 36.7; O2SAT 98
[2023-01-25] MEDS: Acetaminophen 500 MG Tablet 1000 MG PO ×4 (05:11→22:58)
[2023-01-25] MEDS: LACTATED RINGERS 500 ML 999 ML IV (07:25)
[2023-01-25 07:53] LABS: Hemoglobin 12.3 g/dL (12.0-15.0); Mean Corp Hgb Conc 33.2 g/dL (32-36); Mean Corpuscular Hgb 29.1 pg (27.0-32.0); Mean Corpuscular Volume 87.5 fL (81-99); Mean Platelet Vol. 10.6 fl (6.2-12.0); Platelet Count 252 K/mm3 (150-450); RBC Distribution Width CV 11.1 % (11.6-14.6); RBC Distribution Width SD 35.5 fl (35.1-43.9); Red Blood Count 4.23 M/mm3 (4.2-5.4); White Blood Count 8.2 K/mm3 (4.4-11.0)
[2023-01-25 08:11] VITALS: BP 98/53; PULSE 64; RESP 18; TEMP 36.7; O2SAT 100
[2023-01-25 08:11] LABS: Anion Gap 4 (5-15); BUN 5 mg/dL (7-18); BUN/Creat Ratio 7.6 RATIO (10-20); Calcium,Total 8.6 mg/dL (8.5-10.1); Chloride 110 mmol/L (98-107); Creatinine, Serum 0.66 mg/dL (0.55-1.02); EST Glomerular Filtration Rate 121 mL/min (>60); Est Glom Filt Rate - Afr Amer 147 mL/min (>60); Estimated Creatinine Clearance 132.22 ml/min; Glucose 93 mg/dL (74-106); Potassium 3.6 mmol/L (3.5-5.1); Sodium Level 138 mmol/L (136-145)
[2023-01-25] MEDS: 0.9% Saline Lock 10 ML Syringe IV ×2 (08:14→17:04)
[2023-01-25] MEDS: Ketorolac 15 MG/ML Vial IV ×2 (08:14→17:04)
--- NOTE | 2023-01-25 10:30 | PCM.PN.SRG ---
Subjective Subjective Patient is doing well with no complaints. Objective Data Objective Data Vital Signs: Vital Signs Temp Pulse Resp BP Pulse Ox O2 Del Method O2 Flow Rate 98.1 F 64 18 98/53 L 100 Room Air 4 01/25/23 08:11 01/25/23 08:11 01/25/23 08:11 01/25/23 08:11 01/25/23 08:11 01/25/23 08:11 01/24/23 15:00 Oxygen Flow Rate (L/min) 4 Oxygen Delivery Method Room Air Weight: 160 lb 4.417 oz Body Mass Index (BMI) 25.1 Intake & Output: Intake and Output for Last 24 Hours 01/23/23 01/24/23 01/25/23 23:59 23:59 23:59 Intake Total 500 / 500 5640 / 5640 740 / 740 Output Total 650 / 650 1100 / 1100 Balance 500 / 500 4990 / 4990 -360 / -360 Lab / Micro Data 01/25/23 07:25 01/25/23 07:25 Labs: Laboratory Results - last 24 hr 01/25/23 07:25: WBC 8.2, RBC 4.23, Hgb 12.3, Hct 37.0, MCV 87.5, MCH 29.1, MCHC 33.2, RDW Std Deviation 35.5, RDW Coeff of Leo 11.1 L, Plt Count 252, MPV 10.6, Sodium 138, Potassium 3.6, Chloride 110 H, Carbon Dioxide 24.0, Anion Gap 4 L, BUN 5 L, Creatinine 0.66, Estim Creat Clear Calc 132.22, Est GFR (MDRD) Af Amer 147, Est GFR (MDRD) Non-Af 121, BUN/Creatinine Ratio 7.6 L, Glucose 93, Calcium 8.6 Physical Exam Const oriented x3 and no apparent distress Resp normal respiratory effort GI soft to palpation and non-tender Assessment & Plan Assessment/Plan (1) Volvulus of sigmoid colon: PLAN: Patient is doing well with her sigmoid colectomy. Urine is clear and I will remove the Holman. She tolerated clears and I will wait to advance diet when she is having bowel function. Hopeful for discharge this weekend. Vipul Bauer MD Pager: [facility] [address] [place] [address], [address] [place] [address] Office:
[2023-01-25] MEDS: Docusate Sodium 100 MG Capsule PO (10:37)
[2023-01-25] MEDS: FLUoxetine 10 MG Capsule PO (10:37)
[2023-01-25 12:51] VITALS: BP 111/61; PULSE 81; RESP 18; TEMP 36.8; O2SAT 100
--- NOTE | 2023-01-25 13:12 | DS.PCM_ITS ---
Providers Date of Admission: 01/19/23 Primary Care Physician: Dr. Christopher Anthony, Reason For Visit: SIGMOID VOLVULUS Diagnosis Discharge Diagnosis (1) Volvulus of sigmoid colon: Status: Acute Code(s): K56.2 - Volvulus Plan: Patient is doing well with her sigmoid colectomy. Urine is clear and I will remove the Holman. She tolerated clears and I will wait to advance diet when she is having bowel function. Hopeful for discharge this weekend. Vipul Bauer MD Pager: [facility] [address] [place] [address], [address] [place] [address] Office: Medications at Discharge Home Medications drospirenone 3 mg-ethinyl estradiol 0.02 mg tablet 1 tab PO DAILY control 01/19/23 fluoxetine 10 mg capsule (Prozac) 10 mg PO DAILY depres 01/19/23 Hospital Course Operations colectomy Summary of Care Provided Hospital Course: The patient was admitted with acute sigmoid volvulus. Patient was emergently taken for decompressive colonoscopy. Afterwards she was started on clear liquid diet once her rectal tube was removed. She was then bowel prep and taken for elective sigmoid colectomy. After colectomy she is doing well and advance on diet and once tolerating a diet discharged home. Weight / BMI Weight Weight: 160 lb 4.417 oz Body Mass Index (BMI) 25.1 ABG / Lab / Microbiology Data 01/25/23 07:25 01/25/23 07:25 Laboratory: Laboratory Results - last 24 hr 01/25/23 07:25: WBC 8.2, RBC 4.23, Hgb 12.3, Hct 37.0, MCV 87.5, MCH 29.1, MCHC 33.2, RDW Std Deviation 35.5, RDW Coeff of Leo 11.1 L, Plt Count 252, MPV 10.6, Sodium 138, Potassium 3.6, Chloride 110 H, Carbon Dioxide 24.0, Anion Gap 4 L, BUN 5 L, Creatinine 0.66, Estim Creat Clear Calc 132.22, Est GFR (MDRD) Af Amer 147, Est GFR (MDRD) Non-Af 121, BUN/Creatinine Ratio 7.6 L, Glucose 93, Calcium 8.6 D/C Instructions Discharge Diet: Light diet - advance as tolerated Discharge Activity: May Not Drive (No driving for 2-3 days or while taking narcotic pain meds.) and May Shower Lifting Restrictions: 15 lbs for 4 weeks Call your doctor if your incision/area has: Continuous Slow Oozing, Sudden Increased Bleeding, Increased Pain/ Swelling, Increased Redness, Foul Smelling Discharge and Swelling at the incision site Call your doctor if you observe: Fever of 101 or Higher and Inability to have a bowel movement Suture Line Care: Avoid Pulling/Pushing and Avoid Pinching/Bending Change Dressing in: 1 day Cleanse incision/area with: Soap & Water Please Follow Up With: Vipul Bauer MD When: Please call to schedule 2 week follow up appointment. [phone] Meaningful Use Info Meaningful Use Diagnoses (Choose all that apply): None applicable Discharge Plan Admission Admit Date/Time: 01/19/23 19:14 Attending Provider: Vipul Bauer Primary Care Provider: Christopher Anthony Discharge Orders/Prescriptions Prescriptions: Continued drospirenone-ethinyl estradiol 3-0.02 mg tablet 1 tab PO DAILY Patient Comments: take 1 tablet by mouth once daily fluoxetine [Prozac] 10 mg capsule 10 mg PO DAILY Referrals / Follow Up: Christopher Anthony DO [Primary Care Provider] - Disposition Disposition (needs filled in before D/C Order can be placed): Home, Self Care
[2023-01-25 13:55] VITALS: O2SAT 96
[2023-01-25 17:01] VITALS: BP 103/60; PULSE 60; RESP 18; TEMP 36.6; O2SAT 100
[2023-01-25] MEDS: Lactated Ringers 1,000 ML 40 ML IV (20:58)
[2023-01-25 22:00] VITALS: BP 93/54; PULSE 74; RESP 18; TEMP 37.2; O2SAT 99
[2023-01-25] MEDS: Ketorolac 30 MG/ML Syringe 15 MG IV (22:59)
[2023-01-26 04:00] VITALS: BP 101/56; PULSE 66; RESP 16; TEMP 36.6; O2SAT 97
[2023-01-26] MEDS: Ondansetron 4 MG/2 ML Vial IV (05:27)
[2023-01-26 09:00] VITALS: BP 109/59; PULSE 83; RESP 18; TEMP 36.9; O2SAT 97
--- NOTE | 2023-01-26 09:08 | PCM.PN.SRG ---
Subjective Subjective Patient seen and examined during AM rounds. She is found sitting up in bed. She denies any significant abdominal discomfort and reports that she is hungry. She confirms that she had some loose bowel movements overnight. She states that she had one gagging episode overnight but believes this was due to try to take medication on empty stomach. Objective Data Objective Data Vital Signs: Vital Signs Temp Pulse Resp BP Pulse Ox O2 Del Method O2 Flow Rate 98.4 F 83 18 109/59 L 97 Room Air 4 01/26/23 09:00 01/26/23 09:00 01/26/23 09:00 01/26/23 09:00 01/26/23 09:00 01/26/23 09:00 01/24/23 15:00 Oxygen Flow Rate (L/min) 4 Oxygen Delivery Method Room Air Weight: 160 lb 4.417 oz Body Mass Index (BMI) 25.1 Intake & Output: Intake and Output for Last 24 Hours 01/24/23 01/25/23 01/26/23 23:59 23:59 23:59 Intake Total 5640 / 5640 3020.00 / 3020.00 60 / 60 Output Total 650 / 650 1100 / 1100 Balance 4990 / 4990 1920.00 / 1920.00 60 / 60 Lab / Micro Data 01/25/23 07:25 01/25/23 07:25 Physical Exam Const oriented x3 and no apparent distress Constitutional Narrative: Patient appears mildly anxious Resp normal respiratory effort GI GI Narrative: Minimally distended, dressings initially intact but once removed the wounds are nonerythematous and there is only scant drainage to the right lower quadrant port site, there is some mild tenderness right around the patient's Pfannenstiel incision Assessment & Plan Assessment/Plan (1) Volvulus of sigmoid colon: PLAN: Patient continues to do well postoperative day 2 from her laparoscopic sigmoid colectomy. She has experienced return of bowel function and expresses an appetite. Therefore we will advance her to full liquid diet this morning. I have encouraged her to try to get a shower today as she has some crusted blood about her wound sites. I will try to transition her to oral pain medications as well. Charges/Coding Visit Charges Inpatient E&M: 67389 Subs Hosp L2
[2023-01-26] MEDS: Lactated Ringers 1,000 ML 25 ML IV (10:29)
[2023-01-26] MEDS: Ketorolac 30 MG/ML Syringe 15 MG IV (12:42)
[2023-01-26] MEDS: Acetaminophen 500 MG Tablet 1000 MG PO ×2 (12:43→17:59)
[2023-01-26] MEDS: FLUoxetine 10 MG Capsule PO (12:44)
[2023-01-26] MEDS: Docusate Sodium 100 MG Capsule PO (12:44)
[2023-01-26 14:44] VITALS: BP 123/83; PULSE 114; RESP 16; TEMP 36.5; O2SAT 100
[2023-01-26] MEDS: Ensure Plus High Protein 120 ML LIQUID PO (16:53)
[2023-01-26] MEDS: Ibuprofen 400 MG Tablet PO (20:22)
[2023-01-26 20:44] VITALS: BP 101/69; PULSE 64; RESP 16; TEMP 37.4; O2SAT 100
[2023-01-27] MEDS: Acetaminophen 500 MG Tablet 1000 MG PO ×2 (00:02→05:56)
[2023-01-27 06:00] VITALS: BP 110/67; PULSE 69; RESP 16; TEMP 36.5; O2SAT 100
[2023-01-27] MEDS: FLUoxetine 10 MG Capsule PO (08:33)
[2023-01-27] MEDS: Ensure Plus High Protein 120 ML LIQUID PO (08:33)
[2023-01-27] MEDS: Ibuprofen 400 MG Tablet PO (08:38)
[2023-01-27 08:41] VITALS: BP 113/67; PULSE 72; RESP 16; TEMP 36.7; O2SAT 98
--- NOTE | 2023-01-27 09:07 | PCM.PN.SRG ---
Subjective Subjective Patient seen and examined during AM rounds. She reported no difficulty with her advancement to regular diet yesterday. She has a number of concerns about returning to school and also asked that I speak with her mother regarding similar concerns. This was accomplished via a telephone call this morning. Ms. Butts states that her most significant discomfort at this time is some left shoulder and diaphragmatic discomfort. She reports ongoing bowel function but denies any bloody bowel movements. She does wish to know when her stools are likely to become more solid. Objective Data Objective Data Vital Signs: Vital Signs Temp Pulse Resp BP Pulse Ox O2 Del Method O2 Flow Rate 98.1 F 72 16 113/67 98 Room Air 4 01/27/23 08:41 01/27/23 08:41 01/27/23 08:41 01/27/23 08:41 01/27/23 08:41 01/27/23 08:42 01/24/23 15:00 Oxygen Flow Rate (L/min) 4 Oxygen Delivery Method Room Air Weight: 160 lb 4.417 oz Body Mass Index (BMI) 25.1 Intake & Output: Intake and Output for Last 24 Hours 01/25/23 01/26/23 01/27/23 23:59 23:59 23:59 Intake Total 3020.00 / 3020.00 600.67 / 600.67 400.83 / 400.83 Output Total 1100 / 1100 Balance 1920.00 / 1920.00 600.67 / 600.67 400.83 / 400.83 Lab / Micro Data 01/25/23 07:25 01/25/23 07:25 Physical Exam Const oriented x3 and no apparent distress Resp normal respiratory effort GI GI Narrative: Nondistended, port sites remain covered with Steri-Strips (as does Pfannenstiel incision). Patient has tenderness with palpation but states that this is limited to incisional pain. There is no celsa-incisional erythema or drainage. Assessment & Plan Assessment/Plan (1) Volvulus of sigmoid colon: PLAN: Patient continues to do well postoperative day 3 from her laparoscopic sigmoid colectomy. She tolerated advancement to a regular diet yesterday and her pain remains well controlled with oral pain medications. I held a detailed conversation with both the patient and her mother via telephone regarding postoperative expectations. Zunilda wishes to know whether we will be possible to return to school next week. I have encouraged her to exercise some caution but she remains motivated to get back to school. I have provided her with lifting/activity restrictions and encouraged her to reach out to our office first thing tomorrow to make her outpatient appointment. She will be discharged to home today. Charges/Coding Visit Charges Inpatient E&M: 34407 Subs Hosp L2
--- NOTE | 2023-01-27 11:11 | DCINST_ITS ---
Discharge Instructions Diet Discharge Diet: Light diet - advance as tolerated Activity Discharge Activity: May Not Drive (No driving while using narcotic pain medication) and May Shower Dressing / Incision Call your doctor if your incision/area has: Continuous Slow Oozing, Sudden Increased Bleeding, Increased Pain/ Swelling, Increased Redness, Foul Smelling Discharge and Swelling at the incision site Call your doctor if you observe: Fever of 101 or Higher and Inability to have a bowel movement Suture Line Care: Avoid Pulling/Pushing and Avoid Pinching/Bending Cleanse incision/area with: Soap & Water Additional Dressing/Incision Instructions:: Please leave Steri-Strips intact until they fall off spontaneously or are taken off at your follow-up visit Follow Up Care Please Follow Up With: Vipul Bauer MD Test Results: Test results from this visit will be discussed in further detail at your follow- up appointment, if applicable. Discharge Plan Admission Admit Date/Time: 01/19/23 19:14 Primary Reason for Your Visit: Sigmoid volvulus and sigmoid colectomy Attending Provider: Vipul Bauer Primary Care Provider: Christopher Anthony Discharge Orders/Prescriptions Prescriptions: New oxycodone 5 mg Tablet 5 mg PO Q6H PRN PRN (Reason: Pain Score 6-10) 3 Days Qty: 14 0RF Continued drospirenone-ethinyl estradiol 3-0.02 mg tablet 1 tab PO DAILY Patient Comments: take 1 tablet by mouth once daily fluoxetine [Prozac] 10 mg capsule 10 mg PO DAILY Referrals / Follow Up: Christopher Anthony DO [Primary Care Provider] - Disposition Disposition (needs filled in before D/C Order can be placed): Home, Self Care
== END 2023-01-27 12:08 | disposition home or self-care (01) | DRG 331 ==
LOC: ED 16:57 → MS3 18:00
PROVIDERS: Admitting Provider Surgery; Emergency Provider Emergency Medicine; PCP Student in an Organized Health Care Education/Training Program; Visit Provider Surgery
PROC: 0DJD8ZZ Inspection of Lower Intestinal Tract, Via Natural or Artificial Opening Endoscopic (ICD-10-PCS; CPT 45330; principal; 2023-01-19 18:00)
PROC: 0DTN0ZZ Resection of Sigmoid Colon, Open Approach (ICD-10-PCS; CPT 44204; principal; 2023-01-24 09:50)
DX: K56.2 Volvulus (principal)
CPT/HCPCS: 36415; 74018; 74177; 80048; 80053; 81001; 81025; 83690; 85025; 85027; 88304; 88307; 94668; 99284; J7030; J7120; Q9967; A4216; J2405